=== PATIENT | male | born 1990 | race Hispanic/Latino ===

== ENCOUNTER 2020-03-25 08:02 | Emergency (ER) | payer SELFPAY ==
[~2020-03-25] VITALS: Ht 170.2 cm; Wt 123.4 kg
[2020-03-25] MEDS ORDERED: ASPIRIN 81 MG CHEW TAB PO ONE (08:30)
--- NOTE | 2020-03-25 08:34 | Emergency Department Note ---
History of Present Illnes History of Present Illness History of Present Illness This is a 30 year old male . 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 Any updates have been documented here. Past Medical History Recent Fever: No Clinical Suspicion of Infectio: No New/Unexplained Change in Ment: No Past Medical History: None Past Surgical History: None Social History Smoking Cessation: Current some day smoker Counseling Performed: Yes Any Illegal Drug Use: No TB Exposure/Symptoms: No Physically hurt or threatened: No Family History Family history of heart diseas: Yes (grandfather after age 65) Other Any Pre-Existing Lines (PICC,: No Is patient up to date on immun: No Review of Systems Review of Systems Constitutional: Reports other (numbness as above felt like he might pass out a few days ago after cherst pain started) EENTM: Reports no symptoms Cardiovascular: Reports as per HPI Respiratory: Reports no symptoms Gastrointestinal: Reports no symptoms Musculoskeletal: Reports no symptoms Integumentary: Reports no symptoms Neurological: Reports as per HPI Psychological: Reports no symptoms Endocrine: Reports no symptoms Hematological/Lymphatic: Reports no symptoms Review of other systems: All other systems negative Physical Exam Related Data Allergies: Coded Allergies: No Known Allergies (Unverified , 03/25/20) Vital signs reviewed: Yes Physical Exam CONSTITUTIONAL Constitutional: Present well-developed HENT HENT: Present normocephalic, Present atraumatic, Present oropharynx clear/moist, Present oropharynx normal EYES Eyes: Reports PERRL, Reports conjunctivae normal, Reports EOM normal, Reports lids normal NECK Neck: Present ROM normal, Present supple PULMONARY Pulmonary: Present effort normal, Present breath sounds normal CARDIOVASCULAR Cardiovascular: Present regular rhythm, Present heart sounds normal, Present intact distal pulses, Present capillary refill normal, Present normal rate GASTROINTESTINAL Abdominal: Present soft, Present nontender, Present bowel sounds normal GENITOURINARY Genitourinary: Present exam deferred SKIN Skin: Present warm, Present dry MUSCULOSKELETAL Musculoskeletal: Present ROM normal NEUROLOGICAL Neurological: Present alert, Present oriented x 3, Present DTRs normal, Present no gross motor or sensory deficits PSYCHOLOGICAL Psychological: Present mood/affect normal, Present behavior normal, Present thought content normal, Present judgement normal Results Laboratory Laboratory cardiac markers WNL and Chem creatine 1.2 and ALT 47 both mildly elevated. CBC wnl. D_Dimer less than 100 Lab results reviewed: Yes Imaging Imaging results reviewed: Yes Impressions NAD Diagnostics Tests Diagnostic test(s) reviewed: Yes Diagnostic comments ekg nsr rate 78 quest LAE non speific st t wave changes t waves down in 1 and AVL Assessment & Plan Medical Decision Making MDM pt given the option of admit to observation but opted to go home. Risks and benifits discussed. Told to take ASA 81 mg daily will also give ativan .25 mg po tid prn for anxiety. Told to return for any further concerns Reassessment Reassessment time: 09:04 (Felling better chest pain almost completely resolved) Assessment & Plan Final Impression: (1) Atypical chest pain Depart Disposition: HOME, SELF-jail Meds Active Scripts Lorazepam (ATIVAN) 1 Mg Tablet, 0.25 MG PO TID PRN for anxiety, #10 0 Refills Prov:TOMASZ SILVEIRA MD 03/25/20 Aspirin (ASPIRIN CHEW) 81 Mg Chew, 81 MG PO DAILY for 30 Days, #30 TAB Prov:TOMASZ SILVEIRA MD 03/25/20 TOMASZ SILVEIRA MD Mar 25, 2020 08:34
[2020-03-25] MEDS ORDERED: ASPIRIN 325 MG TAB ONE (08:36)
--- NOTE | 2020-03-25 08:51 | Diagnostic Imaging Report ---
EXAMINATION: CXR 2 VIEW - HOPD INDICATION: Chest pain COMPARISON: None FINDINGS: LINES/TUBES:None LUNGS:The lungs are well-inflated. No focal consolidation or pulmonary edema. PLEURA:No pleural effusion or pneumothorax. MEDIASTINUM:The cardiomediastinal silhouette appears normal in size and shape. BONES/SOFT TISSUES:No acute osseous injury. ABDOMEN:No free air under the diaphragm. IMPRESSION: No focal pneumonia or pulmonary edema. Signed by: Zachery Reardon MD on 03/25/2020 8:48 AM
[2020-03-25 09:10] VITALS: BP 118/71
[2020-03-25] MEDS ORDERED: ATIVAN1 MG PO (09:11)
[2020-03-25] MEDS ORDERED: ASPIRIN CHEW81 MG PO (09:11)
== END 2020-03-25 09:35 | disposition home or self-care (01) ==
LOC: FSED 08:33
DX: R07.89 Other chest pain (principal); F17.210 Nicotine dependence, cigarettes, uncomplicated
CPT/HCPCS: 71046; 80053; 82553; 84484; 85025; 85379; 93005; 99284